=== PATIENT | male | born 1965 | race Hispanic/Latino ===

== ENCOUNTER 2016-02-26 03:11 | Emergency (ER) | payer MEDICAID, OTHER ==
[~2016-02-26] VITALS: Ht 167.6 cm; Wt 59.1 kg
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
[2016-02-26 03:19] VITALS: BP 113/72; PULSE 88; RESP 24; O2SAT 99
[2016-02-26] MEDS ORDERED: 0.9% Sodium Chloride 1,000 ML IV ONE ×2 (03:19→04:22)
[2016-02-26 03:32] LABS: BASOPHILS % (AUTO) 0.4 % (0-3); EOSINOPHILS % (AUTO) 1.4 % (0-5); MONOCYTES % (AUTO) 8.7 % (4-12); Mean Corpuscular Hemoglobin 29.6 pg (27.0-35.0); Mean Corpuscular Volume 85.2 fL (81-100); Platelet Count 226 bil/L (150-400)
[2016-02-26 03:55] LABS: TROPONIN T 0.01 ug/L (0.0-0.011)
[2016-02-26 04:01] LABS: D-DIMER < 0.5 mg/L (<0.50); INR 0.99 ratio
[2016-02-26 04:06] LABS: Magnesium 2.3 mg/dL (1.6-2.6)
[2016-02-26 04:15] VITALS: BP 116/76; PULSE 90; RESP 20; O2SAT 100
[2016-02-26] MEDS ORDERED: HYDROmorphone Inj 2 MG in 0.9% Sodium Chloride 100 ML IV ONE ×2 (04:20→05:05)
[2016-02-26] MEDS ORDERED: Ondansetron 2 mg/mL 2 mL Inj IVPUSH ONE ×2 (04:20→04:25)
[2016-02-26] MEDS ORDERED: HYDROmorphone 0.5 mg/0.5 mL iSecure Syringe IVPUSH PRN (04:25)
[2016-02-26] MEDS ORDERED: HYDROmorphone 1 mg/mL Inj IVPUSH ONE ×2 (04:25→05:15)
[2016-02-26] MEDS ORDERED: Pantoprazole 4 mg/mL 10 mL Inj IVPUSH ONE (04:25)
[2016-02-26] MEDS ORDERED: ONDA8TAB10 PO (05:37)
[2016-02-26 06:49] VITALS: BP 124/76; PULSE 86; RESP 18; O2SAT 100
--- NOTE | 2016-02-26 08:05 | DRSVH ---
PROCEDURE: X-RAY CHEST ONE VIEW, PORTABLE ([id number]) INDICATIONS: 50 year-old male with syncope. TECHNIQUE: One view of the chest was acquired. COMPARISON: [facility] [place], CR, CHEST 2VW, 06/19/2008, 13:17. FINDINGS: Surgical changes and devices: None. Lungs and pleura: No pleural effusions or pneumothorax. Lungs are clear. Mediastinum: Mediastinal contours appear normal. Heart size is normal. Bones and chest wall: No suspicious bony lesions. Overlying soft tissues appear unremarkable. IMPRESSION: No acute cardiopulmonary disease. Dictated by: Mark Fortune M.D. on 02/26/2016 at 8:02 Approved by: Mark Fortune M.D. on 02/26/2016 at 8:02
--- NOTE | 2016-02-26 08:27 | DRSVH ---
PROCEDURE: CT ABDOMEN AND PELVIS WITH CONTRAST ([id number]) INDICATIONS: 50-year-deon man with syncope, abdominal pain. TECHNIQUE: After the administration of intravenous contrast, 5 mm thick sections acquired from the diaphragm to the symphysis. 5 mm coronal and sagittal reformats were acquired. For radiation dose reduction, the following was used: automated exposure control, adjustment of mA and/or kV according to patient siz e. COMPARISON: None. FINDINGS: Image quality: Excellent. ABDOMEN: Lung bases: Lung bases are clear. Heart size is normal. Solid organs: There is a small focal hypodensity adjacent to the falciform ligament consistent with focal fat. Liver and spleen are normal in size and enhancement. Gallbladder is normal. Biliary syst em is non dilated. Pancreas enhances normally. No adrenal nodules. Kidneys demonstrate normal size and enhancement, without hydronephrosis. Peritoneum and bowel: Normal appendix. Fluid-filled small bowel loops are noted. There is moderate a mount of stool in colon. Bowel loops demonstrate normal wall thickness and caliber. No free fluid or air. Nodes and vessels: No retroperitoneal or mesenteric adenopathy by size criteria. Aorta and inferior vena cava are normal in size. Miscellaneous: No ventral hernias. PELVIS: Genitourinary: Bladder wall thickness is normal. Miscellaneous: No inguinal adenopathy. There is a small fat containing left inguinal hernia. Bones: No suspicious bony lesions. No vertebral body compression fractures. IMPRESSION: 1. Fluid-filled, normal caliber small intestine is present, a nonspecific finding which could be rela bill to enteritis. Recommend clinical correlation. 2. Normal appendix. 3. Focal fat in liver adjacent to the falciform ligament.. 4. Small fat containing left inguinal hernia. Dictated by: Maninder Wiseman M.D. on 02/26/2016 at 8:25 Approved by: Maninder Wiseman M.D. on 02/26/2016 at 8:25
--- NOTE | 2016-02-26 09:59 | DRSVH ---
PROCEDURE: CT BRAIN WITHOUT CONTRAST ([id number]) INDICATIONS: fall, prior head injury TECHNIQUE: Noncontrast 4.5 mm thick angled axial sections acquired from the foramen magnum to the vertex, with c oronal reformats. COMPARISON: None. FINDINGS: Image quality: Excellent. CSF spaces: Basal cisterns are patent. No extra-axial fluid collections. Ventricles are normal in size and shape. Brain: No midline shift. No intracranial masses or hemorrhage. Lara-white matter interface is norm al. Mild bilateral inferior frontal lobe encephalomalacia, chronic. Skull and face: Calvarium and visualized facial bones are intact, without suspicious lesions. Posts urgical changes involving the left orbit and left frontal skull. Sinuses: Visualized sinuses and mastoids are clear. IMPRESSION: No acute intracranial process. Dictated by: Anish Mcdonald M.D. on 02/26/2016 at 9:57 Approved by: Anish Mcdonald M.D. on 02/26/2016 at 9:57
--- NOTE | 2016-02-26 11:03 | DRSVH ---
PROCEDURE: CT CERVICAL SPINE WITHOUT CONTRAST ([id number]) INDICATIONS: fall, prior head injury TECHNIQUE: Noncontrast 3 mm thick sections acquired from the skull base to the T4 level. Sagittal and coronal r eformats were then constructed. For radiation dose reduction, the following was used: automated exp osure control, adjustment of mA and/or kV according to patient size. COMPARISON: None. FINDINGS: Image quality: Excellent. Bones: No fractures or dislocations. Visualized superior ribs are intact. Mild C3-C4 and C4-C5 dis c degeneration. Mild posterior disc bulge at C3-C4, with mild canal narrowing Soft tissues: Prevertebral soft tissues are normal in thickness. No paravertebral hematomas. No ap ical pneumothoraces. IMPRESSION: No acute fracture or malalignment. Mid cervical disc degeneration. Dictated by: Anish Mcdonald M.D. on 02/26/2016 at 11:02 Approved by: Anish Mcdonald M.D. on 02/26/2016 at 11:02
== END 2016-02-26 06:52 | disposition home or self-care (01) ==
LOC: SED 03:11
DX: R55 Syncope and collapse (principal); M54.2 Cervicalgia; M54.5 Low back pain; W18.30XA Fall on same level, unspecified, initial encounter; Y93.01 Activity, walking, marching and hiking; Y99.8 Other external cause status; Y92.019 Unspecified place in single-family (private) house as the place of occurrence of the external cause; Z87.828 Personal history of other (healed) physical injury and trauma; Z86.73 Personal history of transient ischemic attack (TIA), and cerebral infarction without residual deficits
CPT/HCPCS: 36415; 70450; 71010; 72125; 74177; 80053; 83690; 83735; 83880; 84484; 85025; 85379; 85610; 85730; 86850; 93005; 96361; 96374; 96375; 99285; J1170; J2405; J7030; Q9967